=== PATIENT | female | born 1950 | race Hispanic/Latino ===

== ENCOUNTER → 2024-02-23 | Outpatient (CLI) | payer OTHER ==
--- NOTE | 2024-02-23 15:47 | HMCIMG ---
US CAROTID DUPLEX REASON: OTHER SYMPTOMS AND SIGNS INVOLVING THE CIRC AND RESP SYSTEM TECHNIQUE: Exam was performed using spectral analysis and color flow imaging. FINDINGS: Color flow Doppler ultrasound shows normal-appearing bifurcations. There is no anatomic evidence of significant focal narrowing. Flow velocities and velocity ratios appear normal throughout. Minimal plaque in both carotid bifurcations. There is no anatomic evidence of significant focal narrowing. There are tortuous proximal internal carotid arteries. This results in some of velocity elevation normal without evidence of anatomic stenosis. There is antegrade flow in both vertebral arteries. RIGHT CAROTID: CCA: 93 cm/sec ICA: 182 cm/sec Ratio: ICA/CCA: 2.0 ECA: 179 cm/sec Vertebral artery: 68 cm/sec LEFT CAROTID: CCA: 113 cm/sec ICA: 148 cm/sec Ratio: ICA/CCA: 1.3 ECA: 113 cm/sec Vertebral artery: 67 cm/sec IMPRESSION: 1. Mild bilateral plaque formation without anatomic evidence of significant focal stenosis, please see above discussion.
== END | disposition home or self-care (01) ==
LOC: RAH 14:50
PROVIDERS: ATTEND Internal Medicine
DX: I65.23 Occlusion and stenosis of bilateral carotid arteries (principal); R09.89 Other specified symptoms and signs involving the circulatory and respiratory systems
CPT/HCPCS: 93880